=== PATIENT | female | born 1945 | race Caucasian/White ===

== ENCOUNTER 2018-08-20 13:04 | Emergency (ER) | payer OTHER ==
[~2018-08-20] VITALS: Ht 157.5 cm; Wt 70.8 kg
[~2018-08-20 13:04] MED LIST: ALBU3IS INH; ALBU4 PO; ALBU90OI61 INH; ALPR.5 PO; AREDS PO; ASPI81CH PO; ASPI81EC PO; AZIT250 PO; BECL40OI INH; BECL80OI INH; BENZ100A PO; BETA1 PO; CALCAVITD PO; CETI10 PO; CETI5 PO; CHOL10002 PO; CITA20 PO; CYAN100 PO; DIPH50 PO; ERYT.5TO BOTHEYES; FISH1000 PO; GUAIFENESIN ER600 MG PO; IBUP400 PO; K-Dur20 MEQ PO; Keflex500 MG PO; LEVFLO500 PO; LOSA25 PO; LOSHYD PO; LOVA20 PO; MELA3 PO; OMEG1CAP30 PO; OMEP20ER PO; OTC SUPPLEMENTS; POTCHL20ER PO; PRED20 PO; PSEU120ER PO; SUMA25 PO; VALS80 PO; VERA120ERB PO; VIT B COMPLEX PO; VITAMIN D3 PO; ZOLP10 PO
[2018-08-20] MEDS ORDERED: AMLO5 PO (13:20)
[2018-08-20] MEDS ORDERED: HYDCHL25 (13:20)
[2018-08-20] MEDS ORDERED: FISH OIL 1,001000 MG PO (13:21)
[2018-08-20] MEDS ORDERED: DULERA 200 MCG/13 GM INH (13:21)
[2018-08-20] MEDS ORDERED: CITA20 PO (13:21)
[2018-08-20] MEDS ORDERED: CHOL10002 (13:22)
[2018-08-20] MEDS ORDERED: Super B-50 Com1 EACH PO (13:22)
[2018-08-20] MEDS ORDERED: POTA10T PO (13:22)
[2018-08-20] MEDS ORDERED: MELATONIN5 M1 PO (13:23)
[2018-08-20] MEDS ORDERED: IBUP600 PO (13:23)
[2018-08-20] MEDS ORDERED: CALCIUM 500-VI1 EAC1 PO (13:23)
[2018-08-20] MEDS ORDERED: ROBITUSSIN COU237 ML PO (13:52)
[2018-08-20] MEDS ORDERED: Naprosyn500 MG PO (13:52)
[2018-08-20] MEDS ORDERED: Norco 5-325 Ta1 EACH PO (15:47)
== END 2018-08-20 16:08 | disposition home or self-care (01) ==
LOC: ER 13:04
DX: S82.145A Nondisplaced bicondylar fracture of left tibia, initial encounter for closed fracture (principal); S22.39XA Fracture of one rib, unspecified side, initial encounter for closed fracture; J40 Bronchitis, not specified as acute or chronic; I10 Essential (primary) hypertension; F41.9 Anxiety disorder, unspecified; F32.9 Major depressive disorder, single episode, unspecified; E78.00 Pure hypercholesterolemia, unspecified; K21.9 Gastro-esophageal reflux disease without esophagitis; G43.909 Migraine, unspecified, not intractable, without status migrainosus; Z88.5 Allergy status to narcotic agent; Z88.2 Allergy status to sulfonamides; Z79.899 Other long term (current) drug therapy; W01.0XXA Fall on same level from slipping, tripping and stumbling without subsequent striking against object, initial encounter
CPT/HCPCS: 73564; 73700